=== PATIENT | male | born 1945 | race Caucasian/White ===

== ENCOUNTER 2020-08-14 08:52 | Emergency (ER) | payer OTHER, SELFPAY ==
[2020-08-14 08:53] VITALS: PULSE 57; RESP 16; TEMP 36.3; O2SAT 96; BMI 27.5
--- NOTE | 2020-08-14 09:09 | CTR_ITS ---
PROCEDURE INFORMATION: Exam: CT Abdomen And Pelvis With Contrast Exam date and time: 08/14/2020 9:12 AM Age: 75 years old Clinical indication: Abdominal pain; Generalized; Prior surgery; Surgery date: 6+ months; Surgery type: Appy; Additional info: Severe upper abdominal pain TECHNIQUE: Imaging protocol: Computed tomography of the abdomen and pelvis with intravenous contrast. Radiation optimization: All CT scans at this facility use at least one of these dose optimization techniques: automated exposure control; mA and/or kV adjustment per patient size (includes targeted exams where dose is matched to clinical indication); or iterative reconstruction. Contrast material: OMNIPAQUE 300; Contrast volume: 95 ml; Contrast route: INTRAVENOUS (IV); COMPARISON: No relevant prior studies available. RADIATION DOSE METRICS: Total DLP (mGy-cm): 1029.2 FINDINGS: Lungs: Interstitial prominence, chronic granulomatous disease, and trace dependent airspace disease. Liver: Hepatic cysts, including a 1.8 cm cyst in the anterior hepatic dome. Gallbladder and bile ducts: Cholelithiasis. No biliary ductal dilatation. Pancreas: No pancreatic mass or ductal dilatation. Spleen: Granulomata in the borderline enlarged spleen. Adrenals: Unremarkable adrenals. Kidneys and ureters: 7 mm nodular hypodense lesion in the lower pole of the left kidney which does not fulfill CT criteria for a simple cyst. No hydronephrosis. Stomach and bowel: Dilated fluid and air-filled stomach. Mild small bowel dilatation without a focal transition zone. Diverticula, without pericolonic inflammation. Appendix: Appendix not visualized. Intraperitoneal space: No significant free fluid. Vasculature: Vascular calcification. Normal caliber of the abdominal aorta. Lymph nodes: Subcentimeter lymph nodes. Urinary bladder: Bladder dilatation. Reproductive: Calcifications in the enlarged prostate, producing extrinsic compression of the bladder base. Bones/joints: 10 mm bone island in the proximal left femur. Osteopenia. Schmorl's nodes. Degenerative change, disc bulging, and ligamentous calcification. Soft tissues: Atrophy of the right rectus abdominus muscle. CT/CT abdomen pelvis w con* [id number] IMPRESSION: 1. Cholelithiasis. 2. Additional findings as described above. COMMENTS: Consistent with the [employer]'s Incidental Findings Committee white paper (J Am Jose Radiol 2018): Any incidental renal lesion less than 1.0 cm or classified as too small to characterize, or any incidental cystic renal lesion characterized as simple-appearing, is likely benign. No follow-up imaging is recommended for these lesions per consensus recommendations based on imaging criteria. Radiation Dose CTDIVOL = (mGy): DLP = 1029.2 (mGy-cm)
--- NOTE | 2020-08-14 09:09 | XRR_ITS ---
PROCEDURE INFORMATION: Exam: XR Chest, 1 View Exam date and time: 08/14/2020 9:10 AM Age: 75 years old Clinical indication: Other: Epigastric pain; Additional info: Abd pain TECHNIQUE: Imaging protocol: XR of the chest Views: 1 view. COMPARISON: No relevant prior studies available. FINDINGS: Lungs: Hyperinflation, interstitial prominence, and chronic granulomatous disease. Pleural space: No pleural effusion. Heart/Mediastinum: Epicardial fat, without cardiomegaly. Bones/joints: Osteopenia and degenerative change. XR/XR chest 1V portable [id number] IMPRESSION: Hyperinflation, interstitial prominence, and chronic granulomatous disease.
--- NOTE | 2020-08-14 09:10 | ECG_ITS ---
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 Measurements Intervals [place] Rate: 53 P: 47 SD: 165 QRS: 66 QRSD: 97 T: 70 QT: 431 QTc: 406 Interpretive Statements SINUS BRADYCARDIA No previous ECG available for comparison Electronically Signed On 08-14-2020 16:08:04 CDT by Rudy Garcia M.D. [id number]
--- NOTE | 2020-08-14 09:11 | W.ED.ABDPA2 ---
HPI - Abdominal Pain General: Chief Complaint: Abdominal Pain Stated Complaint: vomiting Time Seen by Provider: 08/14/20 09:01 History of Present Illness: HPI narrative: Patient presents here to the ER with complaints of upper abdominal pain that woke him up about 1:00 this morning's been hurting since. Said he vomited x1 today. And food contents. Then he drank some Pepto-Bismol and dry heaves that up he said but no vomiting since then. Has history of abdominal surgery from when he was 9 months old and had possible intussusception. [facility] currently being [facility]. No personal history of diabetes. MD elicited complaint: abdominal pain Pertinent past history: other (Abdominal surgery at young age) Onset (ago): hour(s) Pain Consistency: constant Location: Epigastric, LUQ and RUQ Severity: moderate Pain scale (0-10): 8 Quality: aching and fullness Radiation: none Migration to: no migration Exacerbating factors: movement Relieving factors: rest Associated Symptoms: Reports bloating and vomiting; Denies chills and fever(s) Review of Systems Const: Denies: fever(s), chills or body aches Eyes: Denies: change in vision or blurry vision ENMT: Denies: throat pain or nasal congestion Card: Denies: chest pain or dyspnea on exertion Resp: Denies: dyspnea, productive cough or non-productive cough GI: Reports: abdominal pain, vomiting and bloating : Denies: difficulty urinating Musc: Denies: extremity pain Skin/Breast: Denies: rash Neuro: Denies: headache(s) Psych: Denies: anxiety or depression Néstor/Lymph: Denies: easy bruising Physical Exam Const: COMMON NORMALS: no acute distress, average body habitus and patient oriented x3 HENMT: COMMON NORMALS: normocephalic HEAD & SCALP: normal to inspection and normocephalic FACE & SINUS: normal facial exam Eye: COMMON NORMALS: conjunctivae normal GENERAL EYE: appearance normal, both eyes and all related structures CONJUNCTIVA: Yes conjunctivae normal Neck/C-Spine: COMMON NORMALS: no JVD Chest: COMMONS NORMALS: normal inspection of the chest Resp: COMMON NORMALS: normal respiratory effort and clear to auscultation bilaterally AUSCULTATION: clear to auscultation bilaterally Cardio: COMMON NORMALS: no JVD, regular rate and regular rhythm RATE: regular rate RHYTHM: regular rhythm GI: INSPECTION: Yes abdominal distension AUSCULTATION: Yes Absent bowel sounds PALPATION: Yes Tenderness to palpation present (GI) Details: LUQ and RUQ PERCUSSION: tympanic to percussion Extremity: COMMON NORMALS: normal to inspection and full ROM Neuro: COMMON NORMALS: patient oriented x3 Course Vital Signs: Vital signs: Vital Signs Temperature 97.3 F L 08/14/20 08:53 Pulse Rate 81 08/14/20 11:42 Respiratory Rate 16 08/14/20 11:42 Blood Pressure 180/78 08/14/20 11:42 Pulse Oximetry 94 08/14/20 11:42 MDM - Abdominal Pain MDM Narrative: Medical decision making narrative: Discussed case with Dr. Olmedo Lab Data: Labs: Lab Results 08/14/20 08/14/20 08/14/20 Range/Units 08:57 09:16 09:16 WBC 11.4 H (4.0-10.0) 10^3/ uL RBC 5.09 (4.1-5.3) 10^6/u L Hgb 15.4 (11.7-16.6) g/dL Hct 46.7 (42.0-52.0) % MCV 91.7 (80-94) fL MCH 30.3 (28.0-34.0) pg MCHC 33.0 (30.0-36.0) g/dL RDW 12.2 (12.1-15.1) % Plt Count 210 (130-400) 10^3/c mm MPV 10.4 (7.4-10.4) fL Neut % (Auto) 87.7 % Lymph % (Auto) 9.0 % [place] % (Auto) 2.5 % Eos % (Auto) 0.3 % Baso % (Auto) 0.1 % Neut # (Auto) 10.00 H (1.8-7.7) 10^3/u L Lymph # (Auto) 1.0 (0.8-4.8) 10^3/u L [place] # (Auto) 0.3 (0.2-0.9) 10^3/u L Eos # (Auto) 0.0 (0.0-0.8) 10^3/u L Baso # (Auto) 0.0 (0.0-0.1) 10^3/u L Nucleated RBC % (a uto) 0 % Nucleated RBCs # 0.0 /100WBC PT 12.20 (12.1-14.9) SECO NDS INR 0.88 (0.8-1.2) Sodium (136-145) mmol/L Potassium (3.5-5.1) mmol/L Chloride (98-107) mmol/L Carbon Dioxide (22-29) mmol/L Anion Gap (5-19) BUN (8-23) mg/dL Creatinine (0.7-1.2) mg/dL GFR Calculation Glucose (65-115) mg/dL POC Glucose (70-110) mg/dL Calculated Osmolal ity (285-295) mOsm/k g Lactate (0.5-2.2) mmol/L Calcium (8.5-10.5) mg/dL Total Bilirubin (0.15-1.2) mg/dL AST (0-40) U/L ALT (0-41) U/L Alkaline Phosphata se (40-130) IU/L Total Protein (6.6-8.7) g/dL Albumin (3.5-5.2) g/dL Globulin (1.3-4.6) g/dL Lipase (13-60) U/L Urine Color Straw (Yellow) Urine Appearance Clear (CLEAR) Urine pH 8 H (5-7) Ur Specific Gravit y 1.015 (1.005-1.030) Urine Protein Neg (Negative) Urine Glucose (UA) 4+ H (Normal) Urine Ketones 2+ H (Negative) Urine Blood Neg (Negative) Urine Nitrate Negative (Negative) Urine Bilirubin Neg (Negative) Prot Sulfosalicyli c Acd Positive (Negative) Urine Urobilinogen Norm (Negative) mg/dL Ur Leukocyte Gifty ase Negative (Negative) Urine RBC None (0-2) /hpf Urine WBC Rare (0-5) /hpf Ur Squamous Epith Cells Rare (0-5) /hpf Amorphous Sediment Not Reportable Urine Bacteria Trace (NONE) /hpf Hyaline Casts 0-4 H /lpf Urine Mucus Trace /hpf 08/14/20 08/14/20 08/14/20 Range/Units 09:16 09:16 09:41 WBC (4.0-10.0) 10^3/ uL RBC (4.1-5.3) 10^6/u L Hgb (11.7-16.6) g/dL Hct (42.0-52.0) % MCV (80-94) fL MCH (28.0-34.0) pg MCHC (30.0-36.0) g/dL RDW (12.1-15.1) % Plt Count (130-400) 10^3/c mm MPV (7.4-10.4) fL Neut % (Auto) % Lymph % (Auto) % [place] % (Auto) % Eos % (Auto) % Baso % (Auto) % Neut # (Auto) (1.8-7.7) 10^3/u L Lymph # (Auto) (0.8-4.8) 10^3/u L [place] # (Auto) (0.2-0.9) 10^3/u L Eos # (Auto) (0.0-0.8) 10^3/u L Baso # (Auto) (0.0-0.1) 10^3/u L Nucleated RBC % (a uto) % Nucleated RBCs # /100WBC PT (12.1-14.9) SECO NDS INR (0.8-1.2) Sodium 136 (136-145) mmol/L Potassium 5.0 (3.5-5.1) mmol/L Chloride 100 (98-107) mmol/L Carbon Dioxide 26 (22-29) mmol/L Anion Gap 15.0 (5-19) BUN 10 (8-23) mg/dL Creatinine 0.8 (0.7-1.2) mg/dL GFR Calculation Not Reportable Glucose 229 H (65-115) mg/dL POC Glucose 180 (70-110) mg/dL Calculated Osmolal ity 288 (285-295) mOsm/k g Lactate 1.3 (0.5-2.2) mmol/L Calcium 9.8 (8.5-10.5) mg/dL Total Bilirubin 0.5 (0.15-1.2) mg/dL AST 19 (0-40) U/L ALT 23 (0-41) U/L Alkaline Phosphata se 60 (40-130) IU/L Total Protein 8.4 (6.6-8.7) g/dL Albumin 4.6 (3.5-5.2) g/dL Globulin 3.8 (1.3-4.6) g/dL Lipase 22 (13-60) U/L Urine Color (Yellow) Urine Appearance (CLEAR) Urine pH (5-7) Ur Specific Gravit y (1.005-1.030) Urine Protein (Negative) Urine Glucose (UA) (Normal) Urine Ketones (Negative) Urine Blood (Negative) Urine Nitrate (Negative) Urine Bilirubin (Negative) Prot Sulfosalicyli c Acd (Negative) Urine Urobilinogen (Negative) mg/dL Ur Leukocyte Gifty ase (Negative) Urine RBC (0-2) /hpf Urine WBC (0-5) /hpf Ur Squamous Epith Cells (0-5) /hpf Amorphous Sediment Urine Bacteria (NONE) /hpf Hyaline Casts /lpf Urine Mucus /hpf Discharge Plan Discharge Patient Disposition: Home Clinical Impression: Diabetes mellitus, new onset Abdominal pain Qualifiers: Abdominal location: epigastric Qualified Code(s): R10.13 - Epigastric pain Condition: Stable Prescriptions: New Reglan 10 mg tablet 10 mg PO QID 7 Days Qty: 28 RF: 0 tramadol 50 mg tablet 50 mg PO Q6H PRN (Reason: pain) Qty: 14 RF: 0 metformin 500 mg tablet 500 mg PO BID Qty: 14 RF: 0 No Action multivitamin Tablet 1 tab PO DAILY RF: 0 primidone 50 mg Tablet 25 mg PO DAILY RF: 0 propranolol 160 mg Capsule,Extended Release 24 Hr 160 mg PO DAILY RF: 0 albuterol sulfate 2.5 mg /3 mL (0.083 %) Solution For Nebulization 2.5 mg INHALATION Q6H PRN (Reason: Shortness Of Breath) RF: 0 atorvastatin 10 mg Tablet 10 mg PO DAILY RF: 0 pentoxifylline 400 mg Tablet Extended Release 400 mg PO BID RF: 0 garlic 1,000 mg Capsule 1,000 mg PO DAILY RF: 0 tamsulosin 0.4 mg Capsule 0.4 mg PO DAILY RF: 0 fluticasone propionate 50 mcg/actuation [place],Suspension 2 spray INTRANASAL DAILY PRN (Reason: Nasal Congestion) RF: 0 finasteride 5 mg Tablet 5 mg PO DAILY RF: 0 [place]-3 350 mg-235 mg- 90 mg-597 mg Capsule,Delayed Release(Dr/Ec) 1 cap PO DAILY RF: 0 Discharge Orders: Discharge Order (Routine); Ordered 08/14/20 Ordered By: Madi Rodriguez Discharge Diet: As Directed and Diabetic Discharge Activity: Increase activity as tolerated Patient Instructions: Diabetes and Diet, Diabetic gastroparesis (GEN), Diabetes Mellitus Type 2 in Adults (ED), Abdominal Pain (ED) Activity Restrictions/Additional Instructions: Follow-up with medical provider as directed. Take medications as prescribed. Return to the ER or your medical provider if condition worsens. Please read and understand discharge instructions. If any questions ask please. [facility] Buy yourself glucometer and start checking your blood sugars twice a day at 7 AM 7 PM. Follow diabetic diet abdominal pain is not significantly improved 1224 hrs. follow back up. Discharge Date/Time: 08/14/20 11:43 Coding Level of Care Code ED Red Cap for Juliano Fwd Exam Comprehensive
[2020-08-14 09:16] VITALS: O2SAT 96
[2020-08-14] MEDS: ondansetron 2 mg/ML SDV 2 mL 4 MG IVP (09:23)
[2020-08-14] MEDS: morphine 4 mg/mL SDV 1 mL IVP ×2 (09:23→10:18)
[2020-08-14 09:24] LABS: Glucose Urine UA 4+ (Normal); Ketones Urine 2+ (Negative); Protein Urine Neg (Negative); Specific Gravity, Urine 1.015 (1.005-1.030); Urine Appearance Clear (CLEAR); Urine Color Straw (Yellow); pH Urine 8 (5-7)
[2020-08-14 09:24] LABS: Basophils % 0.1 %; Eosinophils % 0.3 %; Hematocrit 46.7 % (42.0-52.0); Hemoglobin 15.4 g/dL (11.7-16.6); Mean Corpuscular Hemoglobin 30.3 pg (28.0-34.0); Mean Corpuscular Volume 91.7 fL (80-94); Mean Platelet Volume 10.4 fL (7.4-10.4); Monocytes # 0.3 10^3/uL (0.2-0.9); Monocytes % 2.5 %; Neutrophils % 87.7 %; Nucleated Red Blood Cells % 0 %; Platelet Count 210 10^3/cmm (130-400); Red Blood Count 5.09 10^6/uL (4.1-5.3); Red Cell Distribution Width 12.2 % (12.1-15.1); White Blood Count 11.4 10^3/uL (4.0-10.0)
[2020-08-14] MEDS: sodium chloride 0.9% 1,000 ML 999 ML IV (09:24)
[2020-08-14 09:25] LABS: Add Urine Microscopic? YES; Bilirubin Urine Neg (Negative); Blood Urine Neg (Negative); Leukocyte Esterase Urine Negative (Negative); Nitrate Urine Negative (Negative); Sulfosalicylic Acid Urine Positive (Negative); Urobilinogen Urine Norm (Negative)
[2020-08-14 09:27] LABS: Bacteria Urine TRACE /hpf; Hyaline Casts Urine 0-4 /lpf; Mucus Urine TRACE /hpf; Squamous Epithelial Cell Urine RARE /hpf (0-5); WBC Urine RARE /hpf (0-5)
--- NOTE | 2020-08-14 09:27 | PC.NURSE ---
this nurse is unable to auscultate any bowel sounds. ed provider aware
[2020-08-14 09:28] LABS: Add Urine Culture? No
[2020-08-14 09:41] LABS: INR 0.88 (0.8-1.2)
[2020-08-14 09:52] LABS: Alanine Aminotransferase 23 U/L (0-41); Albumin Level 4.6 g/dL (3.5-5.2); Alkaline Phosphatase 60 IU/L (40-130); Aspartate Amino Transferase 19 U/L (0-40); Blood Urea Nitrogen 10 mg/dL (8-23); Calcium 9.8 mg/dL (8.5-10.5); Carbon Dioxide 26 mmol/L (22-29); Chloride 100 mmol/L (98-107); Globulin 3.8 g/dL (1.3-4.6); Glucose 229 mg/dL (65-115); Lipase 22 U/L (13-60); Osmolality Calculated 288 mOsm/kg (285-295); Sodium 136 mmol/L (136-145); Total Bilirubin 0.5 mg/dL (0.15-1.2); Total Protein 8.4 g/dL (6.6-8.7)
[2020-08-14 09:53] LABS: Lactate (Lactic Acid level) 1.3 mmol/L (0.5-2.2)
[2020-08-14 09:56] LABS: Glucose Point of Care 180 mg/dL (70-110)
[2020-08-14] MEDS: iohexol 300 mg/mL 100 mL Btl IV (10:07)
[2020-08-14 10:20] VITALS: BP 190/80; PULSE 58; O2SAT 97
[2020-08-14] MEDS: metoclopramide 5 mg/mL SDV 2 mL 10 MG IVP (11:20)
[2020-08-14 11:42] VITALS: BP 180/78; PULSE 81; RESP 16; O2SAT 94
== END 2020-08-14 11:43 | disposition home or self-care (01) ==
PROVIDERS: Emergency Provider Nurse Practitioner Family
DX: R10.13 Epigastric pain (principal); E11.9 Type 2 diabetes mellitus without complications
CPT/HCPCS: 12345; 36416; 71045; 74177; 80053; 81001; 82962; 83605; 83690; 85025; 85610; 93005; 96361; 96374; 96375; 96376; 99283; 99284; J2270; J2405; J2765; J7030; Q9967

== ENCOUNTER 2023-11-22 16:58 | Emergency (ER) | payer OTHER, SELFPAY ==
[2023-11-22] VITALS (12 sets, daily range): BP systolic 141–174; BP diastolic 72–89; PULSE 69–105; RESP 16–17; TEMP 37; O2SAT 94–98
--- NOTE | 2023-11-22 17:00 | XRR_ITS ---
PROCEDURE INFORMATION: Exam: XR Chest Exam date and time: 11/22/2023 5:21 PM Age: 78 years old Clinical indication: Other: Weakness TECHNIQUE: Imaging protocol: Radiologic exam of the chest. Views: 1 view. COMPARISON: CR XR chest 1V portable [id number] 08/14/2020 10:05 AM FINDINGS: Lungs: Unremarkable. No consolidation. Pleural spaces: Unremarkable. No pleural effusion. No pneumothorax. Heart/Mediastinum: Unremarkable. No cardiomegaly. Bones/joints: Unremarkable. XR/XR chest 1V portable [id number] IMPRESSION: No acute findings.
[2023-11-22 17:28] LABS: Basophils % 0.5 %; Eosinophils # 0.1 10^3/uL (0.0-0.8); Eosinophils % 1.2 %; Mean Corpuscular HGB Conc 32.9 g/dL (30-55); Mean Corpuscular Hemoglobin 29.7 pg (27-33); Mean Corpuscular Volume 90.3 fl (82-101); Mean Platelet Volume 10.7 fL (7.4-10.4); Monocytes # 0.6 10^3/uL (0.2-0.9); Monocytes % 9.2 %; Neutrophils # 4.81 10^3/uL (1.8-7.7); Neutrophils % 73.8 %; Nucleated Red Blood Cells % 0 %; Platelet Count 218 10^3/cmm (157-399); Red Blood Count 4.54 10^6/uL (3.85-5.65); Red Cell Distribution Width 12.5 % (12.1-15.1); White Blood Count 6.52 10^3/uL (3.29-11.43)
[2023-11-22 17:57] LABS: Alanine Aminotransferase 446 U/L (0-41); Albumin Level 3.8 g/dL (3.5-5.2); Alkaline Phosphatase 146 U/L (40-130); Anion Gap 15.8 (5-19); Aspartate Amino Transferase 265 U/L (0-40); Blood Urea Nitrogen 13 mg/dL (8-23); Calcium 9.3 mg/dL (8.5-10.5); Carbon Dioxide 25 mmol/L (22-29); Chloride 105 mmol/L (98-107); Globulin 3.4 g/dL (1.3-4.6); Glucose 125 mg/dL (65-115); Osmolality Calculated 296 mOsm/kg (285-295); Potassium 3.8 mmol/L (3.5-5.1); Sodium 142 mmol/L (136-145); Total Bilirubin 5.1 mg/dL (0.15-1.2); Total Protein 7.2 g/dL (6.6-8.7)
--- NOTE | 2023-11-22 18:18 | USR_ITS ---
PROCEDURE INFORMATION: Exam: US Abdomen, Limited; Right Upper Quadrant Exam date and time: 11/22/2023 6:32 PM Age: 78 years old Clinical indication: Abdominal pain; Other: Ruq pain TECHNIQUE: Imaging protocol: Real time ultrasound of the abdomen with image documentation. Limited exam focused on the right upper quadrant. COMPARISON: CT abdomen pelvis w con* [id number] 08/14/2020 10:01 AM FINDINGS: Liver: The liver is mildly echogenic indicating fatty infiltration. There are no masses or collections noted.. Gallbladder: Mildly distended gallbladder with gallstones and associated sludge versus debris. There is a stone that appears to be lodged in the neck of the gallbladder. The gallbladder wall is thickened measuring 10.2 mm with an associated positive Iglesias's sign. Biliary ducts: common bile duct is within normal limits measuring 5.1 mm. Pancreas: The visualized pancreas is unremarkable. Right kidney: the right kidney demonstrates good corticomedullary differentiation with no hydronephrosis. US/US gall bladder [id number] IMPRESSION: Acute cholecystitis with obstructing stone at the neck of the gallbladder.
--- NOTE | 2023-11-22 18:25 | ECG_ITS ---
[facility] Test Date: 2023-11-22 Pat Name: Francisco Bennett Department: Room: Gender: Male Kaiawhina Kohanga Reo: : 1945 Requested By: Hank Ralph Order Number: [id number] Abdulaziz MD: Quang Ray M.D. 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 [id number]
--- NOTE | 2023-11-22 18:27 | W.ED.ABDPA2 ---
HPI - Abdominal Pain General: Chief Complaint: Abdominal Pain Stated Complaint: [facility] Time Seen by Provider: 11/22/23 18:16 Source: patient Mode of arrival: ambulatory Limitations: no limitations History of Present Illness: 78-year-old male states that he has been having issues gallbladder last month he states has been getting worked up at [facility] in [place] to have it removed but has not had it removed states had some slight increase in pain he states pain is currently 2 attended had blood work done at the [facility] this morning had an elevated bilirubin and liver enzymes and was called and told to come here he denies any fevers denies any vomiting or diarrhea Associated Symptoms: Denies chills, diarrhea, fever(s), nausea and vomiting Review of Systems Const: Denies: fever(s) or chills ENMT: Denies: throat pain or dental pain Card: Denies: chest pain Resp: Denies: dyspnea GI: Reports: abdominal pain; Denies: nausea, vomiting or diarrhea Musc: Denies: neck pain or back pain Skin/Breast: Denies: rash Neuro: Denies: headache(s) Physical Exam Const: COMMON NORMALS: no acute distress, patient oriented x3 and healthy appearing HENMT: COMMON NORMALS: normocephalic and atraumatic HEAD & SCALP: normocephalic and atraumatic Neck/C-Spine: COMMON NORMALS: full ROM and supple Chest: COMMONS NORMALS: normal inspection of the chest Resp: COMMON NORMALS: normal respiratory effort, No retractions, No use of accessory muscles and clear to auscultation bilaterally AUSCULTATION: clear to auscultation bilaterally Cardio: COMMON NORMALS: regular rate, regular rhythm and No murmurs present (Cardio) RATE: regular rate RHYTHM: regular rhythm GI: COMMON NORMALS: Normal to inspection, nondistended, normoactive bowel sounds present, Soft to palpation and no masses PALPATION: Yes Soft to palpation and Yes Tenderness to palpation present (GI) Details: RUQ Extremity: COMMON NORMALS: normal to inspection and full ROM Neuro: COMMON NORMALS: patient oriented x3, moves all extremities and no focal motor deficits Psych: COMMON NORMALS: mental status grossly normal, Normal thought process present and cooperative THOUGHT PROCESS: Normal thought process present Skin: COMMON NORMALS: no rashes or lesions noted and no wounds GENERAL SKIN EXAM: no rashes or lesions noted Course Vital Signs: Vital signs: Vital Signs Temperature 98.6 F 11/22/23 17:06 Pulse Rate 76 11/22/23 19:39 Respiratory Rate 16 11/22/23 17:06 Blood Pressure 156/81 11/22/23 19:39 Pulse Oximetry 98 11/22/23 19:39 Oxygen Delivery Me thod Room Air 11/22/23 19:39 MDM - Abdominal Pain Medical Decision Making Patient presents here with abdominal pain he has cholecystitis along with elevated bilirubin likely choledocholithiasis did speak to [facility] will transfer there for higher level of care for GI capabilities. Medical Records I reviewed the patient's medical records. Lab Data I reviewed the patient's lab results. 11/22/23 17:18 11/22/23 17:18 Labs/Radiology: Radiology Impressions Chest X-Ray 11/22/23 17:00 IMPRESSION: No acute findings. Gallbladder Ultrasound 11/22/23 18:18 IMPRESSION: Acute cholecystitis with obstructing stone at the neck of the gallbladder. ADDENDUM: 11/22/231914 THIS REPORT CONTAINS FINDINGS THAT MAY BE CRITICAL TO PATIENT CARE. The findings were verbally communicated via telephone conference with Dr. 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 The findings were acknowledged and understood. Laboratory Results WBC 6.52 10^3/uL (3.29-11.43) 11/22/23 17:18 RBC 4.54 10^6/uL (3.85-5.65) 11/22/23 17:18 Hgb 13.50 g/dL (11.27-16.99) 11/22/23 17:18 Hct 41.0 % (37-53) 11/22/23 17:18 MCV 90.3 fl (82-101) 11/22/23 17:18 MCH 29.7 pg (27-33) 11/22/23 17:18 MCHC 32.9 g/dL (30-55) 11/22/23 17:18 RDW 12.5 % (12.1-15.1) 11/22/23 17:18 Plt Count 218 10^3/cmm (157-399) 11/22/23 17:18 MPV 10.7 fL (7.4-10.4) H 11/22/23 17:18 Neut % (Auto) 73.8 % 11/22/23 17:18 Lymph % (Auto) 15.0 % 11/22/23 17:18 [place] % (Auto) 9.2 % 11/22/23 17:18 Eos % (Auto) 1.2 % 11/22/23 17:18 Baso % (Auto) 0.5 % 11/22/23 17:18 Neut # (Auto) 4.81 10^3/uL (1.8-7.7) 11/22/23 17:18 Lymph # (Auto) 1.0 10^3/uL (0.8-4.8) 11/22/23 17:18 [place] # (Auto) 0.6 10^3/uL (0.2-0.9) 11/22/23 17:18 Eos # (Auto) 0.1 10^3/uL (0.0-0.8) 11/22/23 17:18 Baso # (Auto) 0.0 10^3/uL (0.0-0.1) 11/22/23 17:18 Nucleated RBC % (auto) 0 % 11/22/23 17:18 Nucleated RBCs # 0.0 /100WBC 11/22/23 17:18 Sodium 142 mmol/L (136-145) 11/22/23 17:18 Potassium 3.8 mmol/L (3.5-5.1) 11/22/23 17:18 Chloride 105 mmol/L (98-107) 11/22/23 17:18 Carbon Dioxide 25 mmol/L (22-29) 11/22/23 17:18 Anion Gap 15.8 (5-19) 11/22/23 17:18 BUN 13 mg/dL (8-23) 11/22/23 17:18 Creatinine 0.9 mg/dL (0.7-1.2) 11/22/23 17:18 GFR Calculation Not Reportable 11/22/23 17:18 Glucose 125 mg/dL (65-115) H 11/22/23 17:18 POC Glucose 103 mg/dL (70-110) 11/22/23 18:27 Calculated Osmolality 296 mOsm/kg (285-295) H 11/22/23 17:18 Calcium 9.3 mg/dL (8.5-10.5) 11/22/23 17:18 Total Bilirubin 5.1 mg/dL (0.15-1.2) H 11/22/23 17:18 AST 265 U/L (0-40) H 11/22/23 17:18 ALT 446 U/L (0-41) H 11/22/23 17:18 Alkaline Phosphatase 146 U/L (40-130) H 11/22/23 17:18 Total Protein 7.2 g/dL (6.6-8.7) 11/22/23 17:18 Albumin 3.8 g/dL (3.5-5.2) 11/22/23 17:18 Globulin 3.4 g/dL (1.3-4.6) 11/22/23 17:18 All radiology interpretation(s) finalized by discharge EKG Data EKG 1: I personally reviewed and interpreted this EKG as follows: EKG interpretation date: 11/22/23 EKG interpretation time: 18:25 Interpretation: nsr hr [address] or t wave abnormalities qrs 85 qtc 411 Discharge Plan Discharge Patient Disposition: Admitted As Inpatient Clinical Impression: Cholecystitis, Choledocholithiasis Condition: Stable Prescriptions: No Action multivitamin Tablet 1 tab PO DAILY primidone 50 mg Tablet 25 mg PO DAILY propranolol 160 mg Capsule,Extended Release 24 Hr 160 mg PO DAILY albuterol sulfate 2.5 mg /3 mL (0.083 %) Solution For Nebulization 2.5 mg INHALATION Q6H PRN (Reason: Shortness Of Breath) atorvastatin 10 mg Tablet 10 mg PO DAILY pentoxifylline 400 mg Tablet Extended Release 400 mg PO BID garlic 1,000 mg Capsule 1,000 mg PO DAILY tamsulosin 0.4 mg Capsule 0.4 mg PO DAILY fluticasone propionate 50 mcg/actuation [place],Suspension 2 spray INTRANASAL DAILY PRN (Reason: Nasal Congestion) finasteride 5 mg Tablet 5 mg PO DAILY [place]-3 350 mg-235 mg- 90 mg-597 mg Capsule,Delayed Release(Dr/Ec) 1 cap PO DAILY tramadol 50 mg tablet 50 mg PO Q6H PRN (Reason: pain) Qty: 14 0RF metformin 500 mg tablet 500 mg PO BID Qty: 14 0RF Coding Level of Care Code ED Senior Validation Engineer for Dariusg Kris
[2023-11-22 18:32] LABS: Glucose Point of Care 103 mg/dL (70-110)
[2023-11-22] MEDS: piperacillin-tazobactam 3.375 GM in sodium chloride 0.9% (plus) 50 ML IV (19:37)
[2023-11-22 20:23] LABS: Lipase 50 U/L (13-60)
[2023-11-22 20:49] LABS: Urine Color Amber (Yellow)
[2023-11-22 20:50] LABS: Protein Urine 1+ (Negative); Specific Gravity, Urine 1.025 (1.005-1.030); Urine Appearance SL Hazy (CLEAR); pH Urine 5 (5-7)
[2023-11-22 20:51] LABS: Add Urine Microscopic? YES; Bilirubin Urine 2+ (Negative); Blood Urine Neg (Negative); Glucose Urine UA Norm (Normal); Ketones Urine 1+ (Negative); Leukocyte Esterase Urine Trace (Negative); Urobilinogen Urine 8 mg/dL (Negative)
[2023-11-22 20:55] LABS: Nitrate Urine Negative (Negative)
[2023-11-22 20:57] LABS: Amorphous Sediment Urine 1+ /hpf; Bacteria Urine 1+ /hpf; Calcium Oxalate Crystals Urine 40-55 /hpf; Mucus Urine 2+ /hpf
[2023-11-22 20:58] LABS: Add Urine Culture? No; WBC Urine 0-4 /hpf (0-5)
[2023-11-23] VITALS (16 sets, daily range): BP systolic 108–160; BP diastolic 53–93; PULSE 59–96; RESP 16; O2SAT 93–98
--- NOTE | 2023-11-23 00:18 | PC.NURSE ---
pt given phone to be able to call family.
--- NOTE | 2023-11-23 03:06 | PC.NURSE ---
pt update this nurse rounded on pt at 0305 with transfer update. eyes closed resp even at this time.
[2023-11-23] MEDS: piperacillin-tazobactam 3.375 GM in sodium chloride 0.9% (plus) 50 ML IV (06:14)
== END 2023-11-23 07:59 | disposition admitted as inpatient to this hospital (09) ==
PROVIDERS: Emergency Provider Emergency Medicine
DX: K80.40 Calculus of bile duct with cholecystitis, unspecified, without obstruction (principal); Z79.84 Long term (current) use of oral hypoglycemic drugs
CPT/HCPCS: 36415; 36416; 71045; 76705; 80053; 81001; 82962; 83690; 85025; 93005; 96365; 99285; J2543